=== PATIENT | male | born 2000 | race Two or more races ===

== ENCOUNTER 2021-04-02 07:37 | Outpatient (CLI) | payer OTHER | END 2021-04-02 07:42 | disposition home or self-care (01) | LOC: LAB 07:37 | PROVIDERS: ATTEND Obstetrics & Gynecology | DX: Z20.818 Contact with and (suspected) exposure to other bacterial communicable diseases (principal); Z20.828 Contact with and (suspected) exposure to other viral communicable diseases ==

== ENCOUNTER 2024-02-12 02:36 | Emergency (ER) | payer OTHER ==
[~2024-02-12] VITALS: Ht 175.3 cm; Wt 81.6 kg
== END 2024-02-12 03:44 | disposition home or self-care (01) ==
LOC: ER 02:38
DX: H10.89 Other conjunctivitis (principal)